=== PATIENT | male | born 1955 | race Caucasian/White ===

== ENCOUNTER 2017-01-04 11:07 | Inpatient (IN) | payer MEDICAID ==
[~2017-01-04] VITALS: Ht 167.6 cm; Wt 86.5 kg
--- NOTE | ~2017-01-04 | RESCARESUM ---
"PATIENT: VAL MCARTHUR | | [facility] UNIT #: [id number] | [address] AGE/SEX: 61 M : 57 | [address] | [place] [address] ADMIT/REG DATE: 01/04/17 | ROOM: [facility] LOC: ADTC | ADTC | Summary of Residential Care Primary Counselor: Leora Colvin LM,[facility] Date of Admission: 04 JAN 2017 Date of Discharge: 08 JAN 2017 Referral Source: SELF-REFERRED Primary Care Provider Prior to Admission: NONE IDENTIFIED Admitting Diagnosis: 304.40/F15.20 STIMULANT USE DISORDER (AMPHETAMINE TYPE), SEVERE HX OF IV USE 303.90/F10.20 ALCOHOL USE DISORDER, SEVERE 304.40/F12.20 CANNABIS USE DISORDER, SEVERE SUSTAINED REMISSION COAGULOPATHY PULMONARY AMBOLISM CHRONIC OBSTRUCTIVE PULMONARY DISEASE, EXZEMA, HELAPTITIS C PREVIOUSLY TREATED WITH RESOLUTION; BENIGH PROSTATIC HYPERTROPHY; ERECTILE DYSFUNCTION; CERVICAL DEGENERATIVE ARTHRITIS; UMBILICAL HERNIA Discharge Diagnosis: SAME ABOVE Goals Achieved: NONE Continued Obstacles to Sobriety/Relapse Issues: POOR IMPULSE CONTROL Family Issues Addressed: NONE/CLIENT LEFT AMA ON DAY 4 OF HIS TREATMENT. Y Individual Therapy Y Group Therapy Y Educational Series on Substance Abuse N Parents/Significant Others Attended Family Program N Acute Medical Problems During the Course of Treatment N Transferred to Hospital During the Course of Treatment Y Accepting of Substance Abuse Problem Completed AA Step #NONE During This Level of Care Significant Incidences During Treatment: CLIENT LEFT AMA (AGAINST MEDICAL ADVICE) ON DAY 4 OF HIS TREATMENT AFTER LEARNING ONE OF HIS FRIENDS . Reason For Discharge: N Completed Residential TX Goals and Ready For Next Level of Care Y Left Tx Against Medical Advice/Treatment Goals Not Complete Continuing Care Plan/Recommendations: Y Sponsor Y AA Meetings/NA Meetings y Successfully Complete a Residential Treatment Program Y Sober-Living Environment PATIENT: VAL MCARTHUR | | [facility] UNIT #: [id number] | [address] AGE/SEX: 61 M : 57 | [address] | [place] [phone] ADMIT/REG DATE: 01/04/17 | ROOM: [facility] LOC: ADTC | ADTC | Summary of Residential Care Specific Continuing Care Plan: CLIENT NEEDS RE-EVALUATION FOR DRUG/ALCOHOL USE STATUS; CLIENT NEEDS TO SUCCESSFULLY COMPLETE RESIDENTIAL TREATMENT; A SOBER LIVING ENVIRONMENT SEEDS TO BE CONSIDERED FOLLOW TREATMENT. PRIMARY COUNSELOR: LEORA COLVIN [facility]"
--- NOTE | 2017-01-04 19:15 | NUR ---
Education 1 Hour: Client heard a presentation on marijuana.
--- NOTE | 2017-01-04 22:11 | NUR ---
Education 1 HR: Clt watched video by Dony "Hussain Jensen" with staff present.
--- NOTE | 2017-01-04 22:33 | NUR ---
Tech Note: Clt attended GM and onsite AA mtg. Was checked into room, searched and had first intro to grp. SE arriving tx
--- NOTE | 2017-01-05 00:25 | NUR ---
4 ADMISSION COUNSELING AND EDUCATION Educated the Client/Family on treatment process, gave a tour of the unit, verified insurance coverage and counseled them on their financial responsibility. Client/Family briefed on family week and given contact sheet to complete, gave copy of rules and regulations. Family completed significant others questionaire. Tech note: Clt came to tx from home which is [place], [place] brought to tx friend. DOC is meth last use 10/05/16. Clt was searched with no contraband found and brings medications into tx were given to RN.
--- NOTE | 2017-01-05 04:45 | NUR ---
Bed Note: Clt lay motionless in bed with eyes closed showing no distress at all bed checks.
--- NOTE | 2017-01-05 11:30 | NUR ---
Group 1.5 hr/ 11:1 Clients all heard peers share in discussion about when is it addiction with loss of control or being a "functional addict" as peer asked questions. Also they introduced self to newcomer. This client was oriented to group therapy rules and did introduce himself joking he is gangster, then shared about fearing getting stabbed, glad to be in treatment for the first time, was tearful about one of his 2 children dying. Peer knew him from outside and said he was only drugger that had integrity and could trust him.
--- NOTE | 2017-01-05 15:58 | NUR ---
PEER REVIEWS 1.25 HRS: Clt participated in peer reviews and took a risk to give open and honest feedback to those receiving a review.
--- NOTE | 2017-01-05 16:19 | NUR ---
Tech Note: Client listened to speaker Hemant Espino and is working on Getting Started.
--- NOTE | 2017-01-05 16:51 | NUR ---
Trauma Note: Client has had significant trauma in his past that will be addressed during the course of his treatment.
--- NOTE | 2017-01-05 16:51 | NUR ---
Individual Therapy, 1.0 hours, This session focused on orienting client to how treatment works. Client was welcomed and asked to explain the chain of events that led him to residential treatment. Client was advised he will see his counselor twice a week, is required to attend all programming and be on time, discussed family participation and signed release forms, explained visiting hours and no phone privileges for the first week, explained to wave at the [facility] if awake during bed check, and reviewed his initial treatment plan.
--- NOTE | 2017-01-05 20:53 | NUR ---
Tech note: client watched TV and movies. Walked to optional offiste AA meeting. SE:alisson w/counselor
--- NOTE | 2017-01-05 20:57 | NUR ---
Tech note: client watched TV and movies. SE:meeting with counselor
--- NOTE | 2017-01-06 04:59 | NUR ---
Bed note: Client was in bed with eyes closed and no distress at all bed checks.
--- NOTE | 2017-01-06 16:51 | NUR ---
Tech Note: Client attended the A.A.Meeting at [facility] and [facility] [place] and is working on [employer].
--- NOTE | 2017-01-06 22:51 | NUR ---
Tech note: Client walked around the park a few times for rec. Client walked to an off site AA meeting. SE: Meeting
--- NOTE | 2017-01-07 05:01 | NUR ---
Bed note: client was in bed with eyes closed and no distress at all bed checks.
--- NOTE | 2017-01-07 15:30 | NUR ---
TECH NOTE: Client participated in big book study, attended [facility], completed chores and watched tv/movies.
--- NOTE | 2017-01-07 23:26 | NUR ---
tech note: Client participated in [facility] [employer].Client watched tv. Client was redirected by tech to take hat off in the building. Client had cigarettes dropped off. SE: [place].
--- NOTE | 2017-01-08 04:45 | NUR ---
Bed note: client was in bed with eyes closed and no distress at all bed checks.
--- NOTE | 2017-01-08 16:23 | NUR ---
DISCHARGE NOTE Client left tx AMA, all personal belongings were sent with.
--- NOTE | 2017-01-10 06:27 | NUR ---
DISCHARGE NOTE Client left tx AMA and all personal belongings were sent with.
--- NOTE | 2017-01-18 08:13 | HP ---
ADMIT: 01/04/2017 RM/LOC: [facility] MR#: [id number] [address] [facility] [address] [place] [id number] VAL MCARTHUR [address] [address] History and Physical SEX: M AGE: 61 : 1955 DATE OF SERVICE: CHIEF COMPLAINT: Chemical dependency and alcohol dependency. HISTORY OF PRESENT ILLNESS: Ava is a 61-year-old, white male, admitted to residential level treatment at [facility] on 01/04/2017. He has a history of numerous prior legal problems and has charges pending for distribution of meth and pot in driving with revoked license. He subsequently came from [place] and checked himself into treatment on 01/04. Past legal histories include 8 or 9 DUIs, driving while revoked, possession of meth a couple of times along with distribution of meth and marijuana. Ava's drug of choice on admission methamphetamines. He first started smoking meth daily at 19 years of age. Initially used 1-2 g a day. His heaviest was in his 20s and 30s when he snorted and shot an 8-ball daily. He admits to sharing needles and using dirty needles, that is when he acquired hepatitis C which he previously been treated. He states he has been doing meth daily off and on since . The last couple of years, he has been smoking 2-5 times a week, usually 1-2 g. His last use was 01/02/2017. Second drug of choice is alcohol. He first started drinking at 15-15 with friends. High school, he would drink six beers or more daily. He would frequently drink more weekends at parties. His heaviest alcohol consumption was in the 30s when he would go to the bars and have 5-10 mixed drinks every night and more on weekends. He admits to 8 or 9 DUIs. He states he has been drinking daily off and on ever since. He states the last couple of years, his alcohol use is decreased because he does not like the hangovers. States he usually has one or two shots once a week. Third drug of choice is cannabis. He first started smoking pot at 10. As a teenager, he smoked about 0.25 ounce every other day. He states in his early 20s, he quit smoking pot and really has not used since. He additionally admits to using acid 100s of times, mushrooms four times, peyote once, heroin,once, and pain pills a couple of times. PAST MEDICAL HISTORY: Operations include a cholecystectomy and hernia repair. Illnesses include COPD; coagulopathy; pulmonary embolism; benign prostatic hypertrophy; hepatitis C, previously treated with resolution; eczema; erectile dysfunction; and cervical degenerative arthritis. MEDICATIONS: On admission are listed and include: 1. Xarelto 20 mg once daily. 2. Ventolin 2 puffs q.i.d. 3. Incruse Ellipta inhalation once daily. 4. Sildenafil 20 mg daily. 5. Aspirin 81 mg two daily. ADMIT: 01/04/2017 RM/LOC: [facility] MR#: [id number] [address] [place] [id number] VAL MCARTHUR [address] [place] [address] History and Physical SEX: M AGE: 61 : 1955 ALLERGIES: NONE. SOCIAL HISTORY: Is that of a 61-year-old, white male. He is currently on disability. He dropped out of school in 9th grade. He smokes a pack of cigarettes daily. He is unemployed and one child, who . FAMILY HISTORY: Include father having lung cancer. Maternal uncle and paternal grandmother having stomach cancer. Paternal grandfather with stroke. Sister additionally has history of alcohol abuse. REVIEW OF SYSTEMS: Remarkable for multiple problems as outlined above. Remainder of review of systems is negative. PHYSICAL EXAMINATION: VITAL SIGNS: He is 5 feet 6 inches with a weight of 86 kg. Blood pressure 135/79 with temp of 97.2 and a pulse of 93. GENERAL APPEARANCE: Is that of a 61-year-old male, who is alert and oriented, appears much older than stated age. HEENT: Pupils are reactive. Extraocular muscles intact. TMs normal. Throat is unremarkable. He has upper and lower dentures. NECK: Without nodes or masses. HEART: Regular without murmur. LUNGS: Clear with diminished breath sounds. ABDOMEN: Obese and soft. He has a ventral abdominal hernia with a number of lipomas. AND RECTAL: Deferred. EXTREMITIES: Reveal no clubbing, cyanosis, or edema. NEUROLOGIC: Exam is normal including light touch, strength, DTRs. ASSESSMENT: 1. Stimulant use disorder, severe with history of IV use, alcohol use disorder, severe. 2. Cannabis use disorder, severe, in full sustained remission. 3. Coagulopathy. 4. Pulmonary embolism. 5. Chronic obstructive pulmonary disease. 6. Eczema. ADMIT: 01/04/2017 RM/LOC: [facility] MR#: [id number] [address] [place] [id number] [place] [address] History and Physical SEX: M AGE: 61 : 1955 7. Hepatitis C, previously treated with resolution. 8. Benign prostatic hypertrophy. 9. Erectile dysfunction. 10.Cervical degenerative arthritis. 11.Umbilical hernia. PLAN: We will admit him to [facility], place him on a multivitamin and thiamine, continue with his home medications. Proceed with drug and alcohol abuse dependency treatment and counseling and further evaluation and management based on his course during hospitalization. Please see his hospital record for the details. Ishaan Tijerina MD/ [facility] JOB #: [id number] CC: Ishaan Tijerina, Attending Physician Jeremias De La Rosa, Family Physician
--- NOTE | 2017-02-17 11:43 | DS ---
ADMIT: 01/04/2017 RM/LOC: [facility] [id number] [id number] [address] [facility] [address] [place], [place] [id number] VAL MCARTHUR [address] [address] General Discharge Summary SEX: M AGE: 61 : 1955 ADMISSION DATE: 01/04/2017 DISCHARGE DATE: 01/08/2017 INDICATION FOR HOSPITALIZATION: George is a 61-year-old, , white male, admitted to residential level treatment at [place] on January 04 with numerous prior legal charges with charges pending for distribution of meth and pot, driving on a revoked license. His drug of choice on admission is methamphetamines. Second drug of choice is alcohol. Third drug of choice is cannabis. Please see his admission H and P for further details regarding his history of present illness, past medical history, physical exam, and assessment at the time of hospitalization. HOSPITAL COURSE: On admission, George was admitted to our residential level treatment [facility]. Given his history of alcohol abuse, he was started on multivitamin and thiamine. He was placed on enteric-coated aspirin 81 mg daily. During treatment, his primary counselor assigned was Demario Flores and during treatment, he underwent individual and group therapy sessions on drug and alcohol abuse dependency. He initiated an educational series on substance abuse. He was overall accepting of substance abuse problem. He completed no steps of Alcoholics Anonymous. No family treatment program was initiated. Reason for discharge was leaving against medical advice. He left on day #4 of his treatment program. He left treatment after he learned that one of his friends had . Reason for discharge was leaving AMA. MEDICATIONS AT DISCHARGE: None. AFTERCARE RECOMMENDATIONS: Include completion of residential level treatment program with sponsor assignment, active AA and NA meeting involvement. LABORATORY AND X-RAY DATA: None. FINAL DISCHARGE DIAGNOSES: Include: 1. Stimulant use disorder, severe with history of IV use. 2. Alcohol use disorder, severe. 3. Cannabis use disorder, severe in full sustained remission. 4. Coagulopathy. 5. Pulmonary embolism. 6. Chronic obstructive pulmonary disease. ADMIT: 01/04/2017 RM/LOC: [facility] MR#: [id number] [address] [id number] VAL MCARTHUR [address] [place] [address] General Discharge Summary SEX: M AGE: 61 : 1955 7. Eczema. 8. Hepatitis C, previously treated with resolution. 9. Benign prostatic hypertrophy. 10.Erectile dysfunction. 11.Cervical degenerative arthritis. 12.Umbilical hernia. PROCEDURES: Include initiation of drug and alcohol abuse dependency and treatment with the patient leaving against medical advice prior to completion of residential level treatment. Please see his hospital record for the details. Ishaan Tijerina MD/ [facility] JOB #: [id number] CC: Ishaan Tijerina MD, Attending Physician Jeremias De La Rosa MD, Family Physician
== END 2017-01-08 14:19 | disposition left against medical advice (07) | DRG 894 ==
LOC: ADTC 11:07
PROVIDERS: ADMIT Family Medicine
PROC: HZ34ZZZ Individual Counseling for Substance Abuse Treatment, Interpersonal (ICD-10-PCS; principal; 2017-01-04)
PROC: HZ43ZZZ Group Counseling for Substance Abuse Treatment, 12-Step (ICD-10-PCS; principal; 2017-01-04)
DX: F15.20 Other stimulant dependence, uncomplicated (principal); I26.99 Other pulmonary embolism without acute cor pulmonale; D68.9 Coagulation defect, unspecified; F10.20 Alcohol dependence, uncomplicated; F12.21 Cannabis dependence, in remission; J44.9 Chronic obstructive pulmonary disease, unspecified; L30.9 Dermatitis, unspecified; K42.9 Umbilical hernia without obstruction or gangrene; N52.9 Male erectile dysfunction, unspecified; N40.0 Benign prostatic hyperplasia without lower urinary tract symptoms; M47.9 Spondylosis, unspecified; Z65.3 Problems related to other legal circumstances; Z72.89 Other problems related to lifestyle; Z56.0 Unemployment, unspecified; Z79.82 Long term (current) use of aspirin